=== PATIENT | male | born 1985 | race Caucasian/White ===

== ENCOUNTER 2017-05-25 14:43 | Observation (INO) | payer OTHER ==
[2017-05-25] MEDS ORDERED: BACITRACIN IRRIGATION/NS 50,000 UNITS/1,000 ML BTL IRR ONE (14:46)
[2017-05-25] MEDS ORDERED: diphenhydrAMINE 25 MG CAP PO ONE (14:46)
[2017-05-25] MEDS ORDERED: DIAZEPAM 5 MG TAB PO ONE (14:46)
[2017-05-25] MEDS ORDERED: ceFAZolin 2 GM/SWFI 2 GM/20 ML SYR IVP ONE (14:46)
[2017-05-25] MEDS ORDERED: NS 1,000 ML IV ONE (14:46)
--- NOTE | 2017-05-25 15:05 | CPEKG ---
Heart Rate: 65 RR Interval: 923 P-R Interval: 136 QRSD Interval: 100 QT Interval: 408 QTC Interval: 425 P [place]: 66 QRS [place]: -1 T Wave [place]: 48 EKG Severity - NORMAL ECG - EKG Impression: SINUS RHYTHM Electronically Signed By: Juvencio Martinez 25-May-2017 20:29:45
[2017-05-25 15:20] LABS: PLATELET COUNT 172 10^3/uL (150-400)
[2017-05-25 15:48] LABS: INR 1.04 (0.83-1.16); PROTIME(PATIENT) 13.8 SEC (12.0-15.0)
[2017-05-25] MEDS ORDERED: BUPIVACAINE 0.5% 30 ML SDV ONE (15:51)
[2017-05-25] MEDS ORDERED: LIDOCAINE 1% 300 MG/30 ML SDV ONE (15:51)
[2017-05-25] MEDS ORDERED: IOPAMIDOL (ISOVUE-300) 100 ML BTL ONE (16:04)
--- NOTE | 2017-05-25 16:09 | PDPROPOC ---
Sedation Plan of Care Sedation Plan of Care: vital signs stable, mental status noted, patient educated of risks, benefits, alternatives, patient can tolerate sedation ASA Classification: ASA 1 Planned drugs: fentanyl, midazolam Mallampati Score: Class 1 Mallampati Reference Image: Patient passed 3-3-2 rule?: Yes
--- NOTE | 2017-05-25 16:12 | PDGENHP ---
History & Physical Chief Complaint: Syncope History of Present Illness: 2nd episode of syncope. Occured at night, post micturition, hit head on bathtub. witnessed after episode occured, she is in room with him. No incontinence or tongue bite. Relevant Physical Exam: [id number] [id number] Cardiorespiratory Assessment: 22 s pause on LINQ monitor correlates with syncope. Have recommended pacemaker, have explained that he may still have syncope with vasodepressor component. Risks of procedure - pneumothorax, cardiac perforation, dvt, pe, svc syndrome, lue edema, lead dislodgement, need for regular follow up and device changes, lead fracture and extraction etc d.w. him and his . Alternative of no intervention and treatment with midodrine, florinef etc discussed but due to prolonged ventricular pauses patient, and I have agreed to proceed with permanent dual chamber pacemaker.
[2017-05-25] MEDS ORDERED: MIDAZOLAM 2 MG/2 ML VIAL ONE ×2 (16:13→16:50)
[2017-05-25] MEDS ORDERED: fentaNYL 100 MCG/2 ML INJ ONE ×2 (16:13→16:51)
[2017-05-25] MEDS ORDERED: HYDROCODONE/APAP 5/325 TAB PO PRN (17:31)
--- NOTE | 2017-05-25 17:31 | EPPROC ---
Electrophysiology Procedure Note: PROCEDURE PERFORMED: Implantation of an A/V Pacemaker Subclavian vein angiography Fluoroscopy INDICATION: Recurrent syncope 22 s pause noted on LINQ device with 2nd episode of syncope PROCEDURE NOTE: Patient presented to the cardiac catheterization laboratory in a fasting, post absorptive state . CCL RN administered sedation. The left infraclavicular area was prepped and draped in the usual sterile fashion. Lidocaine plus bupivacaine was used for local anesthesia. Left subclavian venography was performed by injection of iodinated contrast into the left antecubital vein. This was done to assure patency of the vein and also to assess for any anatomical aberrations. Using a combination of blunt and sharp dissection and electrocautery, the dissection was carried down to the prepectoral fascia. A pocket was made in this anatomical plane. All bleeding was controlled with electrocautery. The pocket was packed with gauze soaked in antibiotic solution. Fluoroscopy was utilized during the entire procedure for venous access and placement of the leads. Using a direct stick technique the left extrathoracic axillary vein was accessed with 2 sticks using the modified Seldinger technique. Placement of the guidewires into the venous system was confirmed by low-pressure blood return and also by visualizing the guidewires advancing into the inferior vena cava. A purse string suture was applied around the guidewires. Two #7 Divehi sheaths were advanced under fluoroscopic guidance over the guidewire. An active fixation ventricular lead was advanced into the right ventricular apex and screwed in place. An active fixation atrial lead was advanced into the right atrial appendage and screwed in place. The peel away sheaths were removed. Pacing thresholds, sensing parameters and lead impedances were measured. There was no diaphragmatic stimulation at maximum output. The leads were sutured to the prepectoral fascia with 3 nonabsorbable sutures each. The pocket was again inspected for any bleeding. The leads were attached to the pacemaker securely. The pacemaker was inserted into the pocket and secured in place with a nonabsorbable suture. Fluoroscopy was performed in PATEL and OSCAR planes to verify right-sided placement of the leads. Also fluoroscopy of the pacemaker pocket was performed. The pacemaker pocket was closed in 3 layers with absorbable monocryl sutures and ana. LINQ monitor was removed using standard technique and ana applied. Appropriate dressing was applied. The patient left the cardiac catheterization laboratory in stable condition. Serial Numbers: Device: SJM: [id number], SN: [id number] Atrial Lead: SJM: [id number]/, SN: [id number] Ventricular Lead: , SN: [id number] Stimulation Thresholds & Impedance Measurements: Atrial Lead: 0.5v@0.5ms / 2.9mV / 455 ohm Ventricular Lead: 0.5v@0.5ms / 5.1mV / 926 ohm Bill Pacing Parameters Pacing mode: DDD with rate drop Lower rate: 40ppm Upper tracking rate: 150 ppm Upper sensor rate: 150 ppm Patient Problems: Problems Problem Status Onset Syncope Acute
--- NOTE | 2017-05-25 17:50 | CPEKG ---
Heart Rate: 69 RR Interval: 870 P-R Interval: 152 QRSD Interval: 100 QT Interval: 396 QTC Interval: 425 P [place]: 68 QRS [place]: 36 T Wave [place]: 42 EKG Severity - NORMAL ECG - EKG Impression: SINUS RHYTHM Electronically Signed By: Juvencio Martinez 25-May-2017 20:29:42
[2017-05-25] MEDS ORDERED: FLU VACC QS 2017-18 (3YR+)/PF 0.5 ML SYR (FLUARIX QUAD) IM ONE (20:20)
[2017-05-25] MEDS: IBUPROFEN 600 MG TAB PO PRN (21:07)
[2017-05-26 05:54] LABS: PLATELET COUNT 159 10^3/uL (150-400)
[2017-05-26 07:39] VITALS: BP 105/76; PULSE 72; RESP 16; TEMP 98.4; O2SAT 96
[2017-05-26] MEDS: IBUPROFEN 600 MG TAB PO PRN (08:17)
--- NOTE | 2017-05-26 09:14 | CPEKG ---
Heart Rate: 81 RR Interval: 741 P-R Interval: 140 QRSD Interval: 98 QT Interval: 384 QTC Interval: 446 P [place]: 72 QRS [place]: 64 T Wave [place]: 44 EKG Severity - NORMAL ECG - EKG Impression: SINUS RHYTHM Electronically Signed By: Gianfranco Matt 26-May-2017 14:39:52
--- NOTE | 2017-05-26 11:17 | ASDISCHSUM ---
Discharge Information Plan Status:Home with No Needs Medically Cleared to Leave:05/25/2017 Discharge Date:05/26/2017 10:36 AM CM D/C Disposition:Home, Routine, Self-Care ADT D/C Disposition:Home, Routine, Self-Care Projected Discharge Date:05/26/2017 10:36 AM Transportation at D/C:Family Discharge Delay Reason: Follow-Up Date:05/26/2017 10:36 AM Discharge Slot: Final Diagnosis: Placement Information Patient Contact Information Contact Name:CHASITY Relationship: Address: Work Phone: City: [facility] Phone: State/[employer] Code: Email: Financial Information Financial Class:[employer] Primary Plan Desc:[facility] Primary Plan Number:[id number] Secondary Plan Desc: Secondary Plan Number: Assessment Information LACE LACE Length of stay for Answers: Less than 1 day current admission Acuity / Level of Care Answers: No. Emergency dept visits in Answers: 0 last 6 months Date Signed: 05/26/2017 10:08 AM Electronically Signed By:Kamala West RN Case Management Discharge Plan Note Case Management Discharge Discharge Order Complete? Answers: Yes Discharge Comments Notes: pt d/c independent after pacermaker placement Date Signed: 05/26/2017 10:09 AM Electronically Signed By:Kamala West RN Intervention Information
--- NOTE | 2017-05-26 17:07 | GDS ---
[f rep st] DISCHARGE SUMMARY DISCHARGE DIAGNOSES: 1. Sinus pauses with syncope. 2. Status post implant of dual-chamber pacemaker. BRIEF HISTORY: This is a 31-year-old man who has a history of prior syncope. He had a LINQ implante d for further evaluation. This recently demonstrated a 22-second pause with syncope. HOSPITAL COURSE: Dr. Martinez implanted a [employer] dual-chamber pacemaker without complications. This is programmed DDD with a base rate of 40 beats per minute. Rate drop response is on. Upper tr acking rate is 150 beats per minute. Right atrial capture threshold is 0.5 V at 0.5 milliseconds. P waves are 4. Lead impedance is 455 ohms. RV lead capture threshold is 0.5 V at 0.5 milliseconds. R-wave is 4 mV and lead impedance is 926 ohms. Patient has done well overnight without chest pain, p ressure, or tightness. No shortness of breath. There is mild tenderness at the pacemaker site. TESTING DONE: Chest x-ray demonstrates normal lead placement and no pleural effusion. LAB WORK: Sodium is 141, potassium 4.6, chloride 109 bicarb 22, BUN 17, creatinine Glucose is 81. WBC is 6.08, hemoglobin 13.9, hematocrit 40, platelets are 159. PHYSICAL EXAM: VITAL SIGNS: Blood pressure is 105/76, pulse is 72, respirations 16, temperature is 36.9, O2 saturation on room air is 96%. SKIN: Pacemaker site is covered with gauze and Opsite dressing. This is dry and intact without bloo d on gauze. There is very slight swelling of the pacemaker pocket site. LINQ site is also with dry gauze and Opsite dressing. CARDIAC: Regular rate and rhythm without murmur, rub, or gallop. LUNGS: Clear to auscultation. DISCHARGE INSTRUCTIONS: Post-pacemaker implant activity restrictions were reviewed with patient and his . He was also given written instructions at the time of discharge. DISCHARGE MEDICATIONS: Please see discharge medication reconciliation. FOLLOWUP: He has a followup for pacemaker check and a wound check on June 02, at 4:00 at [facility]. /[id number]/MODL
== END 2017-05-26 10:36 | disposition home or self-care (01) ==
LOC: FCATH 14:43 → F2W 16:29
PROVIDERS: ADMIT Internal Medicine Cardiovascular Disease; ATTEND Internal Medicine Cardiovascular Disease
PROC: 02H63JZ Insertion of Pacemaker Lead into Right Atrium, Percutaneous Approach (ICD-10-PCS; principal; 2017-05-25)
PROC: 0JPT02Z Removal of Monitoring Device from Trunk Subcutaneous Tissue and Fascia, Open Approach (ICD-10-PCS; principal; 2017-05-25)
PROC: 0JH606Z Insertion of Pacemaker, Dual Chamber into Chest Subcutaneous Tissue and Fascia, Open Approach (ICD-10-PCS; principal; 2017-05-25)
PROC: 02HK3JZ Insertion of Pacemaker Lead into Right Ventricle, Percutaneous Approach (ICD-10-PCS; principal; 2017-05-25)
DX: R55 Syncope and collapse (principal); I49.8 Other specified cardiac arrhythmias; Z23 Encounter for immunization
CPT/HCPCS: 33208; 33284; 71045; 71046; 90471; 93005; G0378; C1785; C1898; G0008; J0690; J2250; J3010; Q9967